=== PATIENT | male | born 1940 | race Caucasian/White ===

== ENCOUNTER 2025-01-15 11:41 | Inpatient (IN) | payer MEDICARE, SELFPAY ==
[2025-01-15] VITALS (14 sets, daily range): BP systolic 110–172; BP diastolic 55–85; PULSE 68–89; RESP 14–18; TEMP 36.4–37.2; O2SAT 94–100; BMI 23.9; BMI 23.2
--- NOTE | 2025-01-15 08:27 | PCM.PRE.AN2 ---
ASA Classification* ASA Classification ASA Classification: 2 Assessment & Plan Anesthesia* Anesthesia Assessment Anesthesia Assessment: Discussed sedation and/or anesthesia options, risks, benefits, and alternatives with patient/parents/legal guardian/POA. Questions invited. The patient/parents/legal guardian/POA seems to understand and agrees to proceed with anesthesia plan. Reviewed the physical assessment, medical history, allergy history and patient home medications list prior to surgery/procedure/anesthetic and documented any changes. Performed airway and anesthesia risk assessments. 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 When Was Last Pacemaker Check QUESTION #4 FULL TEXT: You/Your Family Experience fever (hyperthermia) with Anesthesia Last Oral Intake Last Oral intake: Last Oral Intake NPO since Meds taken in AM with sips of water? 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 Female No 01/13/25 10:52 HX of Motion Sickness No 01/13/25 10:52 HX of N/V After Surgery No 01/13/25 10:52 Non-Smoker Yes 01/13/25 10:52 Duration of Surgery greater No 01/13/25 10:52 than 60 minutes Number of Risk Factors 1 01/13/25 10:52 PONV Score Low Risk 01/13/25 10:52 Height & Weight Height & Weight: Anesthesia: Height & Weight Height 5 ft 7 in 12/05/24 14:52 Respiratory Assessment Respiratory Assessment - mine production engineer: Respiratory Tract Infection Hx - mine production engineer Hx Respiratory Tract Infection Yes: COLD 2 WEEKS AGO/ 01/13/25 10:52 RESOLVED STOP Sleep Apnea STOP Sleep Apnea - mine production engineer: STOP Sleep Apnea - mine production engineer Hx Hypertension Yes: CONTROLLED WITH MED 01/13/25 10:52 Hx Sleep Apnea No 01/13/25 10:52 CPAP BIPAP Do you snore loudly (louder No 01/13/25 10:52 than talking or can be heard Do you often feel tired/ Yes 01/13/25 10:52 fatigued/ sleepy during daytime? Has anyone observed you stop No 01/13/25 10:52 breathing during sleep? STOP Results Positive 01/13/25 10:52 QUESTION #5 FULL TEXT : Do you snore loudly (louder than talking or can be heard through closed doors)? 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 Specify any problems Hx of Preganancy in last 3 N/A 01/13/25 10:52 Months Nurse Filling Out Transfusion DSCHRIBER 01/13/25 10:52 & Questions: Date: 01/13/25 01/13/25 10:52 Time: 10:54 01/13/25 10:52 Patient unable to answer at this time (ie. confused, unrespo /Reproduction History /Reproductive History - mine production engineer: /Reproductive Hx- mine production engineer Hx Now No 01/13/25 10:52 Gestational Age (in weeks): EDC: Hx Hx Para Hx Section SAB No 01/13/25 10:52 PFSH Medical History Wears glasses Thyroid disease Diabetes Anemia Restless legs TIA (transient ischemic attack) Dietary restriction Non-smoker Shortness of breath on exertion History of pain when walking History of edema History of echocardiogram History of stress test Hypertension Diarrhea Home Medications ?Medication ?Instructions ?Recorded ?Last Taken ?Type aspirin 81 mg tablet,delayed 81 mg PO QDAY 12/05/24 01/11/25 History release (Adult Aspirin Regimen) levothyroxine 150 mcg tablet 150 mcg PO QDAY 12/05/24 Unknown History lisinopril 2.5 mg tablet 2.5 mg PO QHS 12/05/24 Unknown History metformin 500 mg tablet 500 mg PO BID 12/05/24 Unknown History Allergy/AdvReac Type Severity Reaction Status Date / Time Penicillins Allergy Severe Anaphylaxis Verified 01/13/25 10:49 Surgical History Hx of right cataract extraction Hx of left cataract extraction Hx of colonoscopy Hx of hemorrhoidectomy History of cochlear implant H/O thyroidectomy Hx of cholecystectomy Social History Smoking Status: Never smoker alcohol intake: never substance use type: does not use Review of Systems (Anesthesia) ROS Narrative System reviewed and no additional complaints, except as documented.
[2025-01-15 09:05] LABS: Hematocrit 20.9 % (40-54); POSITIVE COUNT YES
[2025-01-15 09:07] LABS: Hemoglobin 5.9 g/dL (13.0-16.5)
[2025-01-15] MEDS: Lactated Ringers 1,000 ML 15 ML IV (09:30)
--- NOTE | 2025-01-15 09:33 | H&P.OPEN ---
HPI - General General Date of Service: 01/15/25 HPI Narrative IQRA HWANG, is a 84 M who presents for EGD and colonoscopy due to anemia. Patient's hemoglobin checked this morning was 5.9. Plan for patient to get 2 units packed red blood cells and admitted after the scope by the hospitalist. Patient states she has had dark brown stool since office visit denies any black or red stools. Patient also denies any abdominal pain nausea or vomiting. Patient has had a good appetite but does feel very weak. Patient's last colonoscopy was probably about 15 years ago per patient. Office appointment 12/06/2024 HPI HPI: 84-year-old male presents due to anemia for EGD and colonoscopy. Patient's last hemoglobin was 7. Patient states he may have felt weak but that that was just due to his age and he also does work 3 to 4 days a week. Patient states he has had light brown stools denies any blood mostly been loose usually has some about every 2 to 3 days. Patient has been tolerating diet, admits to good appetite denies any nausea or vomiting. Patient is only on 81 mg of aspirin. Patient last colonoscopy was greater than 10 years ago. Patient denies any family history of colon cancer. [facility] Medical History Wears glasses Thyroid disease Diabetes Anemia Restless legs TIA (transient ischemic attack) Dietary restriction Non-smoker Shortness of breath on exertion History of pain when walking History of edema History of echocardiogram History of stress test Hypertension Diarrhea Home Medications ?Medication ?Instructions ?Recorded ?Last Taken ?Type aspirin 81 mg tablet,delayed 81 mg PO QDAY 12/05/24 01/11/25 History release (Adult Aspirin Regimen) levothyroxine 150 mcg tablet 150 mcg PO QDAY 12/05/24 01/14/25 History lisinopril 2.5 mg tablet 2.5 mg PO QHS 12/05/24 01/14/25 History metformin 500 mg tablet 500 mg PO BID 12/05/24 01/13/25 History Allergy/AdvReac Type Severity Reaction Status Date / Time Penicillins Allergy Severe Anaphylaxis Verified 01/15/25 09:04 Surgical History Hx of right cataract extraction Hx of left cataract extraction Hx of colonoscopy Hx of hemorrhoidectomy History of cochlear implant H/O thyroidectomy Hx of cholecystectomy Social History Smoking Status: Never smoker alcohol intake: never substance use type: does not use Past Medical/Surgical History Planned Operation Planned Operative Procedure(s): EGD/CSCOPE Previous Hospitalizations/Surgeries HX Hospitalizations: No Any Problems With Anesthesia: No You/Your Family Experience Fever (Hyperthermia) With Anes: No Cholinesterase deficiency: No Cardiovascular Hx Hypertension: Yes (CONTROLLED WITH MED) Respiratory Hx Sleep Apnea: No Hx Respiratory Tract Infection/Cold (presently): Yes (COLD 2 WEEKS AGO/RESOLVED) Do You Snore Loudly (louder than talking or can be heard): No Do You Often Feel Tired/ Fatigued/ Sleepy Dring Daytime?: Yes Has Anyone Observed You Stop Breathing During Sleep?: No Result (for STOP score): Positive Smoking Status: Never smoker Neurological Does patient have nerve stimulator: No Reproduction : No Miscellaneous Recent Exposure to Contagious Disease: No Allergies Penicillins Allergy (Severe, Verified 01/15/25 09:04) Anaphylaxis Discharge Is Pt Admitted From a Intermediate, or a Prison: No After D/C, Where Do you Plan to Go: Return Home Vital Signs Vital Signs Vital Signs: 01/15/25 09:05 01/15/25 09:05 Temperature 98.9 F Temperature Source Temporal Pulse Rate 89 Respiratory Rate 18 Respiratory Pattern Normal Blood Pressure 148/68 H Blood Pressure Mean 94 Blood Pressure Source Monitor Blood Pressure Position Semi-Fowlers Pulse Ox 95 Oxygen Delivery Method Room Air Weight Weight: 153 lb 0.013 oz Body Mass Index (BMI) 23.9 Physical Exam Const alert, oriented x3 and no apparent distress HEENT normocephalic and head/scalp atraumatic Resp normal respiratory effort Cardio regular rate GI soft to palpation and non-tender; Negative for non-distended Palpation: Negative for guarding Extremity no clubbing, cyanosis or edema Skin no rashes or lesions noted Neuro CN's II-XII intact bilaterally Psych mental status grossly normal Assessment & Plan Assessment/Plan (1) Anemia: PLAN: Plan Patient is also getting 2 units packed red blood cells and will plan to be admitted after the EGD and colonoscopy. Surgery Risks - Colonoscopy I discussed with the patient the risks of the procedure: Yes Risks Include but are not Limited To: Risks include but are not limited to: Bleeding, perforation requiring further surgery, inability to complete colonoscopy requiring barium enema.
--- NOTE | 2025-01-15 09:45 | EGD_PTH ---
PATIENT: IQRA HWANG LOC: MS3 U#:[id number] AGE/SX: 84/M [place] [facility] [place]: Dr. Krunal Lizarraga DO : 1940 BED: 1 DIS: 01/19/2025 SPEC #: [id number] RECD: 01/15/25 14:09 STATUS: SARIKA DE LEON #: [id number] SULLY: 01/15/25 09:[address]: Therese Huynh DEPT: SURGICAL PATHOLOGY RECD BY: Glenn Alatorre ENTERED: 01/15/25 14:09 SP TYPE: EGD BIOPSY BENNY DR: MD Dr. Krunal Cedeno DO Tissues: A - Gastric mucous membrane Procedures: Surgery Specimen Level IV HEADER OPERATION: Colonoscopy, EGD PRE-OP DIAGNOSIS: Anemia TISSUE SUBMITTED: A- Gastric body polyp biopsy MICROSCOPIC DIAGNOSIS A. Stomach, body, polyp, biopsy: * Fundic gland polyp. MICROSCOPIC DESCRIPTION Slides are reviewed. GROSS DESCRIPTION A. Received in formalin in a container labeled with the patient's name, date of , and gastric body polyp biopsy is a 0.3 x 0.3 x 0.3 cm fragment of lópez-pink mucosal tissue. Submitted in toto in A1. [facility] 01/17/2025 CPT:38981
[2025-01-15 10:55] LABS: Bedside Glucose 184 mg/dL (74-106)
--- NOTE | 2025-01-15 11:28 | OP.CCLET_ITS ---
01/15/2025 Lam Rajan [address] [place] [address] Re : Upper GI endoscopy procedure for Wisam Nunez Dear Dr. Rajan This procedure was performed on Wednesday, January 15, 2025. My impressions and recommendations are as follows: Impressions : - Z-line regular, 40 cm from the incisors. - Multiple gastric polyps. Biopsied. - Normal examined duodenum. - No gross lesions in the entire esophagus. Recommendations : - [Diet Recommendation] [Duration]. - Observe patient in hospital for observation. - Resume previous diet. - Continue present medications. - Await pathology results. My findings are described in the full procedure note, which is enclosed. If I can be of further assistance, please feel free to contact me at Doctor phone number(s): , Work: . Sincerely, MD Therese eBan MD 01/15/2025 11:28:23 AM This report has been signed electronically.
--- NOTE | 2025-01-15 11:28 | OP.EGD_ITS ---
Patient Name: Wisam Nunez Procedure Date: 01/15/2025 10:40 AM Date of : 1940 Age: 84 Procedure: Upper GI endoscopy Indications: Iron deficiency anemia Providers: Therese Huynh MD Medicines: Monitored Anesthesia Care Patient Profile: This is an 84 year old male. Complications: No immediate complications. Procedure: Pre-Anesthesia Assessment: - Prior to the procedure, a History and Physical was performed, and patient medications and allergies were reviewed. The patient's tolerance of previous anesthesia was also reviewed. The risks and benefits of the procedure and the sedation options and risks were discussed with the patient. All questions were answered, and informed consent was obtained. Prior Anticoagulants: The patient has taken no anticoagulant or antiplatelet agents except for aspirin. ASA Grade Assessment: Per anesthesia. After reviewing the risks and benefits, the patient was deemed in satisfactory condition to undergo the procedure. After obtaining informed consent, the endoscope was passed under direct vision. Throughout the procedure, the patient's blood pressure, pulse, and oxygen saturations were monitored continuously. The Endoscope was introduced through the mouth, and advanced to the second part of duodenum. The upper GI endoscopy was accomplished without difficulty. The patient tolerated the procedure well. Scope In: 10:52:41 AM Scope Out: 10:56:30 AM Total Procedure Duration Time 0 hours 3 minutes 49 seconds Findings: The Z-line was regular and was found 40 cm from the incisors. Multiple less than 5 mm semi-pedunculated polyps with no bleeding and no stigmata of recent bleeding were found in the gastric fundus. Biopsies were taken with a cold forceps for histology. The examined duodenum was normal. The cardia and gastric fundus were normal on retroflexion. No gross lesions were noted in the entire esophagus. Impression: - Z-line regular, 40 cm from the incisors. - Multiple gastric polyps. Biopsied. - Normal examined duodenum. - No gross lesions in the entire esophagus. Recommendation: - [Diet Recommendation] [Duration]. - Observe patient in hospital for observation. - Resume previous diet. - Continue present medications. - Await pathology results. Procedure Code(s): --- Professional --- 82525, Esophagogastroduodenoscopy, flexible, transoral; with biopsy, single or multiple Diagnosis Code(s): --- Professional --- K31.7, Polyp of stomach and duodenum D50.9, Iron deficiency anemia, unspecified CPT copyright 2021 [employer]. All rights reserved. The codes documented in this report are preliminary and upon post secondary professional review may be revised to meet current compliance requirements. MD Therese Bean MD 01/15/2025 11:28:23 AM This report has been signed electronically. Number of Addenda: 0 Note Initiated On: 01/15/2025 10:40 AM
--- NOTE | 2025-01-15 11:32 | OP.CCLET_ITS ---
01/15/2025 Lam Rajan [address] [place] [address] [place] [address] Re : Colonoscopy procedure for Wisam Nunez Dear Dr. Rajan This procedure was performed on Wednesday, January 15, 2025. My impressions and recommendations are as follows: Impressions : - Diverticulosis in the entire examined colon. - The entire examined colon is normal on direct and retroflexion views. - No specimens collected. Recommendations : - Admit the patient to [facility] for observation. - No repeat colonoscopy due to current age (66 years or older). - Continue present medications. My findings are described in the full procedure note, which is enclosed. If I can be of further assistance, please feel free to contact me at Doctor phone number(s): , Work: . Sincerely, MD Therese Bean MD 01/15/2025 11:31:46 AM This report has been signed electronically.
--- NOTE | 2025-01-15 11:32 | OP.COLON_ITS ---
Patient Name: Wisam Nunez Procedure Date: 01/15/2025 10:58 AM Date of : 1940 Age: 84 Procedure: Colonoscopy Indications: Iron deficiency anemia Providers: Therese Huynh MD Medicines: Monitored Anesthesia Care Patient Profile: This is an 84 year old male. Last Colonoscopy: more than 10 years ago. Complications: No immediate complications. Procedure: Pre-Anesthesia Assessment: - Prior to the procedure, a History and Physical was performed, and patient medications and allergies were reviewed. The patient's tolerance of previous anesthesia was also reviewed. The risks and benefits of the procedure and the sedation options and risks were discussed with the patient. All questions were answered, and informed consent was obtained. Prior Anticoagulants: The patient has taken no anticoagulant or antiplatelet agents except for aspirin. ASA Grade Assessment: Per anesthesia. After reviewing the risks and benefits, the patient was deemed in satisfactory condition to undergo the procedure. After I obtained informed consent, the scope was passed under direct vision. Throughout the procedure, the patient's blood pressure, pulse, and oxygen saturations were monitored continuously. The Colonoscope was introduced through the anus and advanced to the cecum, identified by the appendiceal orifice, ileocecal valve and palpation. The colonoscopy was performed without difficulty. The patient tolerated the procedure well. The quality of the bowel preparation was good. Scope In: 10:58:51 AM Scope Withdrawal Time 0 hours 15 minutes 7 seconds Scope Out: 11:23:13 AM Total Procedure Duration Time 0 hours 24 minutes 22 seconds Findings: The perianal and digital rectal examinations were normal. Multiple small-mouthed diverticula were found in the entire colon. The entire examined colon appeared normal on direct and retroflexion views. Impression: - Diverticulosis in the entire examined colon. - The entire examined colon is normal on direct and retroflexion views. - No specimens collected. Recommendation: - Admit the patient to [facility] for observation. - No repeat colonoscopy due to current age (66 years or older). - Continue present medications. Procedure Code(s): --- Professional --- 14970, Colonoscopy, flexible; diagnostic, including collection of specimen(s) by brushing or washing, when performed (separate procedure) Diagnosis Code(s): --- Professional --- D50.9, Iron deficiency anemia, unspecified K57.30, Diverticulosis of large intestine without perforation or abscess without bleeding CPT copyright 2021 [employer]. All rights reserved. The codes documented in this report are preliminary and upon quill reamer review may be revised to meet current compliance requirements. MD Therese Bean MD 01/15/2025 11:31:46 AM This report has been signed electronically. Number of Addenda: 0 Note Initiated On: 01/15/2025 10:58 AM
--- NOTE | 2025-01-15 11:35 | PCM.POST.ANE ---
Anesthesia: Postop Eval I Current Vital Signs Temperature: 97.8 F Pulse Rate: 74 Blood Pressure: 110/55 Respiratory Rate: 16 Pulse Ox: 96 Oxygen Delivery Method: Room Air Assessment Airway patent: Yes Spontaneous unlabored respirations: Yes Mental status: Awake and Calm nausea: No Vomiting: No Anesthesia Complication: No Fluid Hydration Crystalloid volume administer (ml): 100 Blood Product volume administered (ml): 200 Total IV fluid infused: 300 Progress Note Anesthesia document: Postop Eval 1 completed: Yes
--- NOTE | 2025-01-15 12:07 | PCM.POSTANE2 ---
Anesthesia Postop Eval I Sum Postop Eval Completion status Anesthesia document: Postop Eval 1 completed: Yes Anesthesia Postop Eval I Summary Anesthesia Postop Eval I Summary: Anesthesia Postop Eval I: Assessment Summary Airway patent Yes 01/15/25 11:36 [email or web address] Spontaneous unlabored Yes 01/15/25 11:36 [email or web address] respirations Mental status Awake,Calm 01/15/25 11:36 [email or web address] nausea No 01/15/25 11:36 [email or web address] Vomiting No 01/15/25 11:36 [email or web address] Anesthesia Postop Eval I: Fluid Summary Crystalloid volume administer 100 01/15/25 11:36 [email or web address] (ml) Colloids volume administered ( ml) Blood Product volume 200 01/15/25 11:36 [email or web address] administered (ml) Total IV fluid infused 300 01/15/25 11:36 [email or web address] Anesthesia Postop Eval I: Summary Notes Anesthesia Complication No 01/15/25 11:36 [email or web address] Anesthesia Complication Comment: Post-operative progress note Anesthesia: Postop Eval II Evaluation Mental status: Awake Pain Level: 0 nausea: No Vomiting: No
[2025-01-15 15:36] LABS: Anion Gap 15 (5-15); BUN 17 mg/dL (4-19); BUN/Creat Ratio 12.5 RATIO (10-20); Calcium,Total 6.7 mg/dL (7.6-11.0); Carbon Dioxide 20.8 mmol/L (21.0-32.0); Chloride 102 mmol/L (98-108); Creatinine, Serum 1.32 mg/dL (0.70-1.20); EST Glomerular Filtration Rate 53 (>60); Estimated Creatinine Clearance 38.25 ml/min (50-250); Ferritin 10 ng/mL (37-417); Glucose 187 mg/dL (70-99); Iron 10 ug/dL (65-175); Iron Binding Capacity,Total 417 ug/dL (250-450); Iron Binding Capacity,Unsat 407 ug/dL (228-428); Potassium 3.7 mmol/L (3.3-5.1); Sodium Level 138 mmol/L (133-145)
--- NOTE | 2025-01-15 15:45 | SUR.PHASEII ---
H&H DRAWN AND SENT TO THE LAB.
[2025-01-15 16:04] LABS: Hematocrit 25.1 % (40-54); Hemoglobin 7.7 g/dL (13.0-16.5)
--- NOTE | 2025-01-15 16:30 | SUR.PHASEII ---
PATIENT CURRENTLY EATING HIS MEAL AND ENJOYING IT . NO COMPLAINTS CURRENTLY.
--- NOTE | 2025-01-15 19:00 | PCM.HP.STD ---
HPI - General General Date of Admission: 01/15/25 Date of Service: 01/15/25 Chief Complaint: Anemia HPI Narrative IQRA HWANG, is a 84 M who presents to [facility] for endoscopy by general surgery due to outpatient labs which showed an anemia. He was seen as an outpatient at Dr. Huynh's office on 12/06/2024, labs from 11/08/2024 showed the patient's hemoglobin to be 7.1, MCV was normal, platelet count was normal and white count was normal. Patient denied any blood in the stool or any black stools. Patient was set up for an EGD and a colonoscopy today, his hemoglobin this morning was 5.9 and the hospitalist service was called to admit the patient after the procedure was completed and the patient would need to be transfused. Patient received 2 units of packed red blood cells in recovery and due to a lack of beds on the third floor, he did not arrive on MedSurg 3 till late in the afternoon by that time his hemoglobin had been repeated and was 7.7. Colonoscopy today showed diverticulosis in the entire examined colon, EGD showed multiple gastric polyps which were biopsied but there were no gross lesions in the esophagus or duodenum. Patient was placed in observation status on MedSurg 3, I will obtain serum iron levels, TIBC, and ferritin. CBC will be rechecked tomorrow, urinalysis will be obtained tomorrow. [facility] Medical History Wears glasses Thyroid disease Diabetes Anemia Restless legs TIA (transient ischemic attack) Dietary restriction Non-smoker Shortness of breath on exertion History of pain when walking History of edema History of echocardiogram History of stress test Hypertension Diarrhea Home Medications ?Medication ?Instructions ?Recorded ?Last Taken ?Type aspirin 81 mg tablet,delayed 81 mg PO QDAY 12/05/24 01/11/25 History release (Adult Aspirin Regimen) levothyroxine 150 mcg tablet 150 mcg PO QDAY 12/05/24 01/14/25 History lisinopril 2.5 mg tablet 2.5 mg PO QHS 12/05/24 01/14/25 History metformin 500 mg tablet 500 mg PO BID 12/05/24 01/13/25 History Allergy/AdvReac Type Severity Reaction Status Date / Time Penicillins Allergy Severe Anaphylaxis Verified 01/15/25 09:04 Surgical History Hx of right cataract extraction Hx of left cataract extraction Hx of colonoscopy Hx of hemorrhoidectomy History of cochlear implant H/O thyroidectomy Hx of cholecystectomy Social History Smoking Status: Never smoker alcohol intake: never substance use type: does not use ROS Constitutional Constitutional: Reports chills; Denies anorexia, change in weight, fatigue, fever(s), night sweats or weakness Eyes Eyes: Denies blurry vision, change in vision, discharge from eye(s) or eye pain Cardiovascular Cardiovascular: Denies chest pain, claudication, edema or palpitations Respiratory/Chest Respiratory/Chest: Denies cough, hemoptysis, shortness of breath at rest or shortness of breath with exertion Gastrointestinal Gastrointestinal: Denies abdominal pain, coffee ground emesis, constipation, diarrhea, hematemesis, hematochezia, loose stools, melena, nausea or vomiting Genitourinary Genitourinary: Denies dysuria, hematuria, urinary frequency, urinary hesitancy, urinary incontinence or urinary urgency Musculoskeletal Musculoskeletal: Denies back pain, joint pain, joint stiffness, joint swelling, myalgias or neck pain Neurologic Neurologic: Denies abnormal gait, abnormal speech, dizziness, focal weakness, headache(s), loss of vision, numbness, other visual disturbances, paresthesias, syncope or tingling Psychiatric Psychiatric: Denies anxiety, cognitive impairment, depression, irritability, mood swings or suicidal ideation Endocrine Endocrinology: Denies change in body appearance, cold intolerance, excessive sweating, heat intolerance, polydipsia or polyuria Hematologic/Lymphatic Hematologic/Lymphatic: Denies none, anemia, easy bleeding, easy bruising or lymphadenopathy Allergic/Immunologic Allergic/Immunologic: Denies rhinitis, urticaria, eczemia or asthma Vital Signs Vital Signs Vital Signs: 01/15/25 09:05 01/15/25 09:05 01/15/25 10:28 Temperature 98.9 F 99.0 F Temperature Source Temporal Temporal Pulse Rate 89 87 Respiratory Rate 18 16 Respiratory Effort Respiratory Depth Respiratory Pattern Normal Blood Pressure 148/68 H 158/72 H Blood Pressure Mean 94 100 Blood Pressure Source Monitor Monitor Blood Pressure Position Semi-Fowlers Semi-Fowlers Blood Pressure Location Right Arm Baseline BP Pulse Ox 95 99 Oxygen Delivery Method Room Air Room Air 01/15/25 11:30 01/15/25 11:35 01/15/25 11:36 Temperature 98.2 F 97.8 F Temperature Source Temporal Pulse Rate 80 78 74 Respiratory Rate 16 16 16 Respiratory Effort Respiratory Depth Respiratory Pattern Normal Blood Pressure 110/55 L 125/61 H 110/55 L Blood Pressure Mean 73 82 Blood Pressure Source Monitor Monitor Blood Pressure Position Left Lateral Left Lateral Blood Pressure Location Right Arm Right Arm Baseline BP 158/72 158/72 Pulse Ox 96 96 96 Oxygen Delivery Method Room Air Room Air Room Air 01/15/25 11:40 01/15/25 12:00 01/15/25 12:00 Temperature 97.5 F L 98.8 F Temperature Source Temporal Temporal Pulse Rate 79 68 Respiratory Rate 16 16 Respiratory Effort Respiratory Depth Respiratory Pattern Normal Blood Pressure 129/84 H 158/82 H Blood Pressure Mean 99 107 Blood Pressure Source Monitor Monitor Blood Pressure Position Semi-Fowlers Semi-Fowlers Blood Pressure Location Right Arm Right Arm Baseline BP 158/72 Pulse Ox 98 100 Oxygen Delivery Method Room Air Room Air 01/15/25 12:39 01/15/25 12:54 01/15/25 13:54 Temperature 98.8 F 98.3 F 98.9 F Temperature Source Temporal Temporal Temporal Pulse Rate 68 78 75 Respiratory Rate 16 16 16 Respiratory Effort Respiratory Depth Respiratory Pattern Blood Pressure 158/82 H 153/85 H 169/83 H Blood Pressure Mean 107 107 111 Blood Pressure Source Monitor Monitor Monitor Blood Pressure Position Semi-Fowlers Semi-Fowlers Semi-Fowlers Blood Pressure Location Right Arm Right Arm Right Arm Baseline BP Pulse Ox 100 99 98 Oxygen Delivery Method Room Air Room Air Room Air 01/15/25 14:54 01/15/25 16:31 01/15/25 17:06 Temperature 97.8 F 97.8 F Temperature Source Temporal Oral Pulse Rate 75 75 Respiratory Rate 18 16 Respiratory Effort Respiratory Depth Respiratory Pattern Blood Pressure 172/83 H 160/79 H Blood Pressure Mean 112 106 Blood Pressure Source Monitor Monitor Blood Pressure Position Semi-Fowlers Sitting Blood Pressure Location Right Arm Right Arm Baseline BP 158/72 Pulse Ox 94 100 Oxygen Delivery Method Room Air Room Air 01/15/25 17:08 Temperature Temperature Source Pulse Rate Respiratory Rate Respiratory Effort Normal Non-Labored Respiratory Depth Normal Respiratory Pattern Normal Blood Pressure Blood Pressure Mean Blood Pressure Source Blood Pressure Position Blood Pressure Location Baseline BP Pulse Ox Oxygen Delivery Method Room Air Weight Weight: 69.4 kg Body Mass Index (BMI) 23.2 Physical Exam Const alert, oriented x3, no apparent distress and healthy appearing Constitutional Narrative: Patient appears her stated age General Appearance: cooperative, well kempt and well developed Orientation / Consciousness: awake, oriented to person, oriented to place and oriented to time HEENT normocephalic, head/scalp atraumatic and moist oral mucous membranes HEENT Narrative: Patient is hard of hearing Eyes PERRL, EOMs intact bilaterally and conjunctivae normal Neck supple, no JVD, thyroid normal and no carotid bruits General: trachea midline Resp normal respiratory effort, no retractions, no use of accessory muscles and clear to auscultation bilaterally Auscultation: Negative for rales, rhonchi or wheezes Cardio regular rate, regular rhythm, S1 normal heart sound, S2 normal heart sound, no murmurs, no rub and no gallops GI normal to inspection, nondistended, normoactive bowel sounds, soft to palpation, non-tender and non-distended Extremity no clubbing, cyanosis or edema Skin no rashes or lesions noted General Skin Exam: no breakdown Neuro oriented x3, CN's II-XII intact bilaterally, moves all extremities, no focal motor deficits and no sensory deficits noted Sensorium / Orientation: awake, alert, oriented to person, oriented to place and oriented to time Speech: speech normal Psych affect normal Results Lab / Micro Data 01/15/25 15:38 01/15/25 09:25 Labs: Laboratory Results - last 24 hr 01/15/25 08:54: Hgb 5.9 L*, Hct 20.9 L 01/15/25 09:18: Blood Type O NEGATIVE, Antibody Screen NEGATIVE, Crossmatch See Detail 01/15/25 09:25: Sodium 138, Potassium 3.7, Chloride 102, Carbon Dioxide 20.8 L, Anion Gap 15, BUN 17, Creatinine 1.32 H, Estim Creat Clear Calc 38.25 L, Est GFR (MDRD) Non-Af 53 L, BUN/Creatinine Ratio 12.5, Glucose 187 H, Calcium 6.7 L, Iron 10 L, TIBC 417, Iron Saturation 2.0 L, Unsaturated IBC 407, Ferritin 10 L 01/15/25 09:28: POC Glucose 184 H 01/15/25 15:38: Hgb 7.7 L, Hct 25.1 L Assessment & Plan Assessment/Plan (1) Anemia: PLAN: Plan 1. Anemia-probably chronic in nature requiring blood transfusion, patient was placed in observation status on MedSurg 3, CBC will be repeated tomorrow, iron studies will be obtained as well as ferritin. UA will be obtained #2 hypothyroidism-patient is on Synthroid #3 type 2 diabetes-patient's hemoglobin A1c on 11/08/2024 was 11.3 Total clinical time spent by myself addressing the patient's medical issues, reviewing all of his data, and collaborating with patient's care team: 55 minutes Charges/Coding Visit Charges Inpatient E&M: 83702 Init Hosp L2
[2025-01-15 20:18] LABS: Hemoglobin A1c 10.9 % (<=5.6)
[2025-01-15] MEDS: Sodium Ferric Gluconat/Sucrose 250 MG in 0.9% Normal Saline (250mL Bag) 250 ML 135 MG IV (20:40)
[2025-01-15] MEDS: Lisinopril 2.5 MG Tablet PO (20:46)
[2025-01-15] MEDS: Heparin Injection (Vial) 5,000 UNIT/ML VIAL 5000 UNIT SC (20:46)
[2025-01-16 02:24] VITALS: BP 132/62; PULSE 66; RESP 18; TEMP 36.9; O2SAT 96
[2025-01-16] MEDS: Levothyroxine 150 MCG Tablet PO (04:33)
[2025-01-16 07:01] LABS: Absolute Lymphocyte Count 0.98 X10^3/uL (0.83-4.51); Absolute Neutrophil Count 2.9 X10^3/uL (2.0-7.7); Basophil# 0.02 X10^3/uL; Basophil% 0.4 % (0-1); Eosinophils% 8.6 % (0-5); Hematocrit 25.5 % (40-54); Hemoglobin 7.8 g/dL (13.0-16.5); Lymphocyte # 0.98 X10^3/ul (0.83-4.51); Mean Corp Hgb Conc 30.6 g/dL (32-36); Mean Corpuscular Hgb 23.4 pg (27.0-32.0); Mean Corpuscular Volume 76.3 fL (80-94); Mean Platelet Vol. 9.5 fl (6.2-12.0); Monocyte# 0.37 X10^3/uL; Monocyte% 7.9 % (0-10); NRBC Flagged by Analyzer 0 % (0-5); Neutrophil # 2.87 X10^3/uL (2.7-7.7); Neutrophil % 61.5 % (47-70); Platelet Count 290 K/mm3 (150-450); RET-HE 20.7 pg (30-35); Red Blood Count 3.34 M/mm3 (4.6-6.2); Reticulocyte Count 1.68 % (0.5-1.5); White Blood Count 4.7 K/mm3 (4.4-11.0)
[2025-01-16 08:20] VITALS: BP 158/88; PULSE 72; RESP 18; TEMP 36.6; O2SAT 97
[2025-01-16] MEDS: Sodium Ferric Gluconat/Sucrose 250 MG in 0.9% Normal Saline (250mL Bag) 250 ML 135 MG IV (08:25)
[2025-01-16] MEDS: Heparin Injection (Vial) 5,000 UNIT/ML VIAL 5000 UNIT SC ×2 (10:40→20:32)
[2025-01-16 10:56] LABS: Bacteria 0 SEEN /hpf (None Seen); Mucous, Urine 0 SEEN /hpf (<or=2+); White Blood Cells 0 SEEN /hpf (0-5)
[2025-01-16 10:58] LABS: Color, Urine Yellow (Yellow); Glucose, Dipstick 100 mg/dl (Normal); Ketone-Dipstick Negative (Negative); Leukocyte Esterase-Dipstick Negative /ul (Negative); Nitrite-Dipstick Negative (Negative); Occult Blood-Urine 250 /ul (Negative); Protein-Dipstick 500 mg/dl (Negative); Specific Gravity, Urine 1.015 (1.002-1.030); Urine Bilirubin Dipstick Negative (Negative); Urine Clarity Sl. Cloudy (Clear); Urine Urobilinogen Normal (Normal)
[2025-01-16 11:05] LABS: Red Blood Cells-Urine > 100 SEEN /hpf (0-5); Squamous Epithelial Cells - UA 0-5 SEEN /hpf (0-5)
--- NOTE | 2025-01-16 11:57 | CASEMGMT ---
Discharge Planning Per pts , Julieta, pt has both a HC POA and LW. She has them laid out to bring in today. Julieta confirmed that she and pt share a cell phone and he has it with him. SW updated. Merissa Garcia DC Planning Asst.
[2025-01-16] MEDS: Acetaminophen 325 MG Tablet 650 MG PO ×2 (12:23→20:33)
[2025-01-16 14:30] VITALS: BP 144/86; PULSE 76; RESP 16; TEMP 37; O2SAT 97
--- NOTE | 2025-01-16 14:32 | NURSING ---
Around 1145 on 01/16, pt was complaining of lower abdominal pain and was frequently using the restroom. This RN bladder scanned pt and found 1100cc of urine on scan. Dr Lizarraga notified and ordered a arnold catheter to be placed. This RN inserted arnold catheter and at 1200 the urine was cloudy yellow. This RN went back into room at 1400 and urine was dark red with clots. Dr Lizarraga notified and is aware. Pt has had 2100cc of urine out of catheter since insertion at 1215.
--- NOTE | 2025-01-16 15:22 | CASEMGMT ---
Met with patient to complete MIRAMONTES form. MIRAMONTES form explained to patient who voiced understanding and signed form. Original form placed in pt?s chart and copy provided to patient. Merissa Garcia, Discharge Planning Asst
--- NOTE | 2025-01-16 15:47 | PN.HOSP_ITS ---
Reason for Visit Reason for Visit: Diagnoses Anemia, unspecified (01/15/25) Subjective Subjective Patient was seen and examined today, his hemoglobin appears to be stable, this afternoon, patient complained of frequent urination and abdominal pain, he was bladder scanned and there was 1100 cc of urine in the bladder. I made the decision to put a Hernández in, the Hernández drained out 2100 cc of urine in 2 hours, the urine was yellow when the Hernández was inserted but it changed to dark red with clots, presently the drainage is light red. Objective Data Objective Data Vital Signs: Vital Signs Temp Pulse Resp BP Pulse Ox O2 Del Method 98.6 F 76 16 144/86 H 97 Room Air 01/16/25 14:30 01/16/25 14:30 01/16/25 14:30 01/16/25 14:30 01/16/25 14:30 01/16/25 14:30 Oxygen Delivery Method Room Air Weight: 69.4 kg Body Mass Index (BMI) 23.2 Intake & Output: Intake and Output for Last 24 Hours 01/14/25 01/15/25 01/16/25 23:59 23:59 23:59 Intake Total 969.5 / 1169.5 840 / 840 Output Total 185 / 185 Balance 784.5 / 984.5 840 / 840 Medical Nutrition Assessment Dietitian: Malnutrition Criteria Met Start: 01/16/25 13:49 Freq: Status: Active Protocol: Document 01/16/25 13:50 RMA (Rec: 01/16/25 13:50 RMA [id number]) Nutrition Malnutrition Evidence of Yes Malnutrition Exists Malnutrition ( Chronic moderate): Evidenced By Suboptimal Energy Intake (Moderate),Weight Loss ( Moderate) Clinical Problem Chronic Disease or Condition Related Malnutrition Etiology moderate protein-calorie malnutrition in the context of chronic disease and debility related to inadequate oral intake and hyperglycemia Signs/Symptoms as evidenced by ~5% unintentional weight loss x 5-6 weeks, PO meeting less than 75% estimated nutrition needs x 1 month and BMI 23.3 Status Active Problem Recommendation Dietitian Will change diet to 2000 calorie, consistent Recommendations/ carbohydrate. Changes Will add 120mL glucerna shake with all meal trays. Will add extra 1-2 oz protein Q meal tray. Lab / Micro Data 01/16/25 05:49 01/15/25 09:25 Labs: Laboratory Results - last 24 hr 01/15/25 08:54: Hemoglobin A1c 10.9 H 01/15/25 15:38: Hgb 7.7 L, Hct 25.1 L 01/16/25 05:49: WBC 4.7, RBC 3.34 L, Hgb 7.8 L, Hct 25.5 L, MCV 76.3 L, MCH 23.4 L, MCHC 30.6 L, RDW Std Deviation 44.0 H, RDW Coeff of Tahir 16.0 H, Plt Count 290, MPV 9.5, Immature Gran % (Auto) 0.600, Neut % (Auto) 61.5, Lymph % (Auto) 21.0, [place] % (Auto) 7.9, Eos % (Auto) 8.6 H, Baso % (Auto) 0.4, Absolute Neuts (auto) 2.9, Absolute Lymphs (auto) 0.98, Nucleated RBC % 0, Retic Count 1.68 H, Immature Retic Fraction 27.90 H, Retic Hgb Equivalent 20.7 L 01/16/25 10:50: Urine Color Yellow, Urine Clarity Sl. Cloudy, Urine pH 6.0, Ur Specific Standard 1.015, Urine Protein 500 H, Urine Glucose (UA) 100 H, Urine Ketones Negative, Urine Occult Blood 250 H, Urine Nitrite Negative, Urine Bilirubin Negative, Urine Urobilinogen Normal, Ur Leukocyte Esterase Negative, Urine RBC > 100 SEEN, Urine WBC 0 SEEN, Ur Squamous Epith Cells 0-5 SEEN, Urine Bacteria 0 SEEN, Urine Mucus 0 SEEN Physical Exam Narrative alert, oriented x3, no apparent distress and healthy appearing Constitutional Narrative: Patient appears her stated age General Appearance: cooperative, well kempt and well developed Orientation / Consciousness: awake, oriented to person, oriented to place and oriented to time HEENT normocephalic, head/scalp atraumatic and moist oral mucous membranes HEENT Narrative: Patient is hard of hearing Eyes PERRL, EOMs intact bilaterally and conjunctivae normal Neck supple, no JVD, thyroid normal and no carotid bruits General: trachea midline Resp normal respiratory effort, no retractions, no use of accessory muscles and clear to auscultation bilaterally Auscultation: Negative for rales, rhonchi or wheezes Cardio regular rate, regular rhythm, S1 normal heart sound, S2 normal heart sound, no murmurs, no rub and no gallops GI normal to inspection, nondistended, normoactive bowel sounds, soft to palpation, non-tender and non-distended Extremity no clubbing, cyanosis or edema Skin no rashes or lesions noted General Skin Exam: no breakdown Neuro oriented x3, CN's II-XII intact bilaterally, moves all extremities, no focal motor deficits and no sensory deficits noted Sensorium / Orientation: awake, alert, oriented to person, oriented to place and oriented to time Speech: speech normal Psych affect normal Assessment & Plan Assessment/Plan (1) Anemia: PLAN: Plan 1. Chronic anemia-appears to be iron deficiency-etiology unclear, patient CBC will be rechecked tomorrow #2 acute urinary retention-patient admits to having difficulty urinating at times over the past few months, urine now has blood in it, I have elected to keep the patient in the hospital and observe, patient was placed on Flomax #3 type 2 diabetes-patient's hemoglobin A1c was 10.9, continue fingerstick blood sugars with sliding scale insulin coverage #4 hypothyroidism-patient is on Synthroid #5 chronic moderate protein and caloric malnutrition related to inadequate oral intake and hyperglycemia, as evidenced by a 5% unintentional weight loss x 5 to 6 weeks, p.o. meeting less than 75% of estimated nutritional needs x 1 month and BMI of 23.3. Patient's diet was changed to 2000-calorie consistent carbohydrate, he will have 120 mL Glucerna shake with all meal trays, and extra 1 to 2 ounces of protein was ordered with each meal tray Total clinical time spent by myself addressing the patient's medical issues, reviewing all of his data, and collaborating the patient's care team: 50 minutes Charges/Coding Visit Charges Inpatient E&M: 94514 Subs Hosp L3
--- NOTE | 2025-01-16 16:40 | CT_ITS ---
PROCEDURE: ABDOMEN/PELVIS WITHOUT CONT 01/16/2025 REASON FOR EXAM: HEMATURIA TECHNIQUE: Abdomen and pelvis CT without intravenous contrast. Noncontrast technique limits evaluation of the abdominal and pelvic viscera. Coronal and Sagittal reconstruction series were provided. One or more dose reduction techniques were used (e.g., Automated exposure control, adjustment of the mA and/or kV according to patient size, use of iterative reconstruction technique). COMPARISON: None FINDINGS: No acute findings in the lung bases. Mild bibasilar scarring/atelectasis. Mild/moderate cardiomegaly. Unenhanced liver, spleen, pancreas and adrenal glands are within normal limits. Gallbladder is not visualized. No significant biliary ductal dilation. Moderate/severe bilateral hydroureteronephrosis without definite obstructing calculi. Underdistended bladder with marked diffuse bladder wall thickening with perivesicular fat stranding. Small amount of right pre vesicular fluid is also present. Hernández catheter in place. Marked enlargement of the prostate impressing on the bladder base which measures at least 6.6 cm in transverse dimension. Stool ball in the rectum. Fecal retention. Scattered colonic diverticula. No bowel obstruction, focal bowel wall thickening or significant perienteric inflammation. No pelvic free fluid. No free air. Calcified nonaneurysmal abdominal aorta. No bulky adenopathy. Mild anasarca. No acute osseous abnormality. Degenerative changes of the lower lumbar spine. CT/Abdomen/Pelvis without Cont IMPRESSION: 1. Underdistended bladder containing a Hernández catheter which limits its assessme nt. Severe diffuse bladder wall thickening and perivesicular fat stranding as well as a small amount of right pre vesicular fl uid. Findings could relate to acute cystitis and/or chronic outlet obstruction. Underlying malignancy not excluded. Consid er further assessment with direct visualization and/or CT urogram. 2. Moderate/severe bilateral hydroureteronephrosis likely related to #1. 3. Marked prostatomegaly. 4. Fecal retention. Reading Location: [facility]
[2025-01-16] MEDS: Ciprofloxacin 500 MG Tablet PO (16:55)
[2025-01-16] MEDS: Tamsulosin HCl 0.4 MG Capsule 0.8 MG PO (16:55)
[2025-01-16 20:24] VITALS: BP 143/77; PULSE 77; RESP 18; TEMP 36.7; O2SAT 96
[2025-01-16] MEDS: Insulin Lispro 100 UNIT/ML INSULN.PEN SC (20:32)
[2025-01-16] MEDS: Lisinopril 2.5 MG Tablet PO (20:33)
[2025-01-16 21:23] LABS: Bedside Glucose 322 mg/dL (74-106)
[2025-01-17 03:11] VITALS: BP 139/81; PULSE 87; RESP 14; TEMP 36.6; O2SAT 96
[2025-01-17] MEDS: Levothyroxine 150 MCG Tablet PO (06:35)
[2025-01-17] MEDS: Insulin Lispro 100 UNIT/ML INSULN.PEN SC ×4 (06:35→21:07)
[2025-01-17 06:56] LABS: Bedside Glucose 200 mg/dL (74-106)
[2025-01-17 07:31] LABS: Absolute Lymphocyte Count 1.02 X10^3/uL (0.83-4.51); Basophil# 0.01 X10^3/uL; Basophil% 0.2 % (0-1); Eosinophil# 0.35 X10^3/uL; Eosinophils% 7.2 % (0-5); Hematocrit 26.9 % (40-54); Hemoglobin 8.2 g/dL (13.0-16.5); Lymphocyte # 1.02 X10^3/ul (0.83-4.51); Lymphocyte % 21.1 % (19-41); Mean Corp Hgb Conc 30.5 g/dL (32-36); Mean Corpuscular Volume 75.6 fL (80-94); Mean Platelet Vol. 9.4 fl (6.2-12.0); Monocyte# 0.37 X10^3/uL; Monocyte% 7.6 % (0-10); NRBC Flagged by Analyzer 0 % (0-5); Neutrophil # 3.04 X10^3/uL (2.7-7.7); Neutrophil % 62.9 % (47-70); Platelet Count 267 K/mm3 (150-450); RBC Distribution Width CV 16.5 % (11.6-14.6); Red Blood Count 3.56 M/mm3 (4.6-6.2); White Blood Count 4.8 K/mm3 (4.4-11.0)
[2025-01-17 08:16] LABS: ALB/GLOB Ratio 1.3 RATIO (0.9-2.4); AST(SGOT) 15 U/L (<=37); Alanine Aminotransfer ALT/SGPT 7 U/L (<=46); Albumin, Serum 2.7 g/dL (3.4-4.8); Alkaline Phosphatase 80 U/L (40-129); Anion Gap 11 (5-15); BUN 13 mg/dL (4-19); BUN/Creat Ratio 10.5 RATIO (10-20); Carbon Dioxide 21.9 mmol/L (21.0-32.0); Chloride 104 mmol/L (98-108); Creatinine, Serum 1.28 mg/dL (0.70-1.20); EST Glomerular Filtration Rate 55 (>60); Estimated Creatinine Clearance 40.82 ml/min (50-250); Globulin 2.1 g/dL (2.2-4.2); Glucose 197 mg/dL (70-99); Potassium 3.4 mmol/L (3.3-5.1); Protein, Total 4.8 g/dL (5.9-8.4); Sodium Level 137 mmol/L (133-145)
[2025-01-17 08:50] VITALS: PULSE 92
[2025-01-17] MEDS: 0.9% Saline Lock 10 ML Syringe IV ×6 (09:08→21:50)
[2025-01-17] MEDS: Lactulose 20 GM/30 ML UDC PO (09:09)
[2025-01-17 09:19] VITALS: BP 111/51; PULSE 89; RESP 16; TEMP 36.5; O2SAT 97
[2025-01-17] MEDS: CALCIUM CHLORIDE IV (09:30)
[2025-01-17] MEDS: NORMAL SALINE 0.9% IV (09:30)
[2025-01-17] MEDS: Heparin Injection (Vial) 5,000 UNIT/ML VIAL 5000 UNIT SC ×2 (09:39→21:03)
[2025-01-17] MEDS: Ciprofloxacin 500 MG Tablet PO ×2 (09:39→21:03)
[2025-01-17] MEDS: Sodium Ferric Gluconat/Sucrose 250 MG in 0.9% Normal Saline (250mL Bag) 250 ML 135 MG IV (11:41)
[2025-01-17 12:19] LABS: Bedside Glucose 233 mg/dL (74-106)
[2025-01-17 14:07] VITALS: BP 134/64; PULSE 94; RESP 18; TEMP 36.9; O2SAT 95
[2025-01-17] MEDS: Acetaminophen 325 MG Tablet 650 MG PO (14:09)
[2025-01-17] MEDS: TRANEXAMIC ACID 1,000 MG in 0.9% Normal Saline (100mL Bag) 100 ML 440 MG IV ×2 (16:17→21:40)
[2025-01-17] MEDS: 0.9% Normal Saline (100mL Bag) 100 ML 15 ML IV (16:17)
[2025-01-17 16:49] LABS: Bedside Glucose 325 mg/dL (74-106)
[2025-01-17] MEDS: Glucerna Shake 120 ML LIQUID PO ×2 (17:47→21:06)
[2025-01-17] MEDS: Tamsulosin HCl 0.4 MG Capsule 0.8 MG PO (17:48)
--- NOTE | 2025-01-17 17:52 | PN.HOSP_ITS ---
Reason for Visit Reason for Visit: Diagnoses Anemia, unspecified (01/17/25) Subjective Subjective Patient was seen and examined today, he still having blood-tinged urine. Patient's creatinine appears stable at this time. Patient's hemoglobin also appears stable. Decided to give the patient tranexamic acid to see if this will stop his bleeding. Urology is not available for consultation at this time and I prefer not to give the patient bladder irrigation. Objective Data Objective Data Vital Signs: Vital Signs Temp Pulse Resp BP Pulse Ox O2 Del Method 98.4 F 94 18 134/64 H 95 Room Air 01/17/25 14:07 01/17/25 14:07 01/17/25 14:07 01/17/25 14:07 01/17/25 14:07 01/17/25 15:27 Oxygen Delivery Method Room Air Weight: 69.4 kg Body Mass Index (BMI) 23.2 Intake & Output: Intake and Output for Last 24 Hours 01/15/25 01/16/25 01/17/25 23:59 23:59 23:59 Intake Total 969.5 / 1169.5 840 / 1540 2135 / 2135 Output Total 185 / 185 2900 / 3950 2950 / 2950 Balance 784.5 / 984.5 -2060 / -2410 -815 / -815 Medical Nutrition Assessment Dietitian: Malnutrition Criteria Met Start: 01/16/25 13:49 Freq: Status: Active Protocol: Document 01/16/25 13:50 RMA (Rec: 01/16/25 13:50 RMA [id number]) Nutrition Malnutrition Evidence of Yes Malnutrition Exists Malnutrition ( Chronic moderate): Evidenced By Suboptimal Energy Intake (Moderate),Weight Loss ( Moderate) Clinical Problem Chronic Disease or Condition Related Malnutrition Etiology moderate protein-calorie malnutrition in the context of chronic disease and debility related to inadequate oral intake and hyperglycemia Signs/Symptoms as evidenced by ~5% unintentional weight loss x 5-6 weeks, PO meeting less than 75% estimated nutrition needs x 1 month and BMI 23.3 Status Active Problem Recommendation Dietitian Will change diet to 2000 calorie, consistent Recommendations/ carbohydrate. Changes Will add 120mL glucerna shake with all meal trays. Will add extra 1-2 oz protein Q meal tray. Lab / Micro Data 01/17/25 06:49 01/17/25 06:49 Labs: Laboratory Results - last 24 hr 01/16/25 20:27: POC Glucose 322 H 01/17/25 06:34: POC Glucose 200 H 01/17/25 06:49: WBC 4.8, RBC 3.56 L, Hgb 8.2 L, Hct 26.9 L, MCV 75.6 L, MCH 23.0 L, MCHC 30.5 L, RDW Std Deviation 45.0 H, RDW Coeff of Tahir 16.5 H, Plt Count 267, MPV 9.4, Immature Gran % (Auto) 1.000 H, Neut % (Auto) 62.9, Lymph % (Auto) 21.1, [place] % (Auto) 7.6, Eos % (Auto) 7.2 H, Baso % (Auto) 0.2, Absolute Neuts (auto) 3.0, Absolute Lymphs (auto) 1.02, Nucleated RBC % 0, Sodium 137, Potassium 3.4, Chloride 104, Carbon Dioxide 21.9, Anion Gap 11, BUN 13, C reatinine 1.28 H, Estim Creat Clear Calc 40.82 L, Est GFR (MDRD) Non-Af 55 L, BUN/Creatinine Ratio 10.5, Glucose 197 H, Calcium 6.0 L*, Total Bilirubin 0.30, AST 15, ALT 7, Alkaline Phosphatase 80, Total Protein 4.8 L, Albumin 2.7 L, G lobulin 2.1 L, Albumin/Globulin Ratio 1.3 01/17/25 11:55: POC Glucose 233 H 01/17/25 16:22: POC Glucose 325 H Radiography Diagnostic Testing: Radiology Impression Abdomen/Pelvis CT 01/16/25 16:40 IMPRESSION: 1. Underdistended bladder containing a Hernández catheter which limits its assessment. Severe diffuse bladder wall thickening and perivesicular fat stranding as well as a small amount of right pre vesicular fluid. Findings could relate to acute cystitis and/or chronic outlet obstruction. Underlying malignancy not excluded. Consider further assessment with direct visualization and/or CT urogram. 2. Moderate/severe bilateral hydroureteronephrosis likely related to #1. 3. Marked prostatomegaly. 4. Fecal retention. Reading Location: [facility] Physical Exam Narrative alert, oriented x3, no apparent distress and healthy appearing Constitutional Narrative: Patient appears her stated age General Appearance: cooperative, well kempt and well developed Orientation / Consciousness: awake, oriented to person, oriented to place and oriented to time HEENT normocephalic, head/scalp atraumatic and moist oral mucous membranes HEENT Narrative: Patient is hard of hearing Eyes PERRL, EOMs intact bilaterally and conjunctivae normal Neck supple, no JVD, thyroid normal and no carotid bruits General: trachea midline Resp normal respiratory effort, no retractions, no use of accessory muscles and clear to auscultation bilaterally Auscultation: Negative for rales, rhonchi or wheezes Cardio regular rate, regular rhythm, S1 normal heart sound, S2 normal heart sound, no murmurs, no rub and no gallops GI normal to inspection, nondistended, normoactive bowel sounds, soft to palpation, non-tender and non-distended Extremity no clubbing, cyanosis or edema Skin no rashes or lesions noted General Skin Exam: no breakdown Neuro oriented x3, CN's II-XII intact bilaterally, moves all extremities, no focal motor deficits and no sensory deficits noted Sensorium / Orientation: awake, alert, oriented to person, oriented to place and oriented to time Speech: speech normal Psych affect normal Assessment & Plan Assessment/Plan (1) Anemia: PLAN: Plan 1. Chronic anemia-appears to be iron deficiency-etiology unclear, patient CBC will be rechecked tomorrow, patient was given Venofer today #2 acute urinary retention with hematuria-CT done yesterday on the abdomen and pelvis showed a thickened bladder wall which could be the result of chronic bladder distention. I have elected to give the patient tranexamic acid to see if this will stop his bleeding. If not, patient may have to have bladder irrigation. #3 type 2 diabetes-patient's hemoglobin A1c was 10.9, continue fingerstick blood sugars with sliding scale insulin coverage #4 hypothyroidism-patient is on Synthroid #5 chronic moderate protein and caloric malnutrition related to inadequate oral intake and hyperglycemia, as evidenced by a 5% unintentional weight loss x 5 to 6 weeks, p.o. meeting less than 75% of estimated nutritional needs x 1 month and BMI of 23.3. Patient's diet was changed to 2000-calorie consistent carbohydrate, he will have 120 mL Glucerna shake with all meal trays, and extra 1 to 2 ounces of protein was ordered with each meal tray Total clinical time spent by myself addressing the patient's medical issues, reviewing all of his data, and collaborating the patient's care team: 35 minutes Charges/Coding Visit Charges Inpatient E&M: 68670 Subs Hosp L2
[2025-01-17 21:00] VITALS: BP 125/66; PULSE 69; RESP 16; TEMP 37.1; O2SAT 98
[2025-01-17] MEDS: Lisinopril 2.5 MG Tablet PO (21:07)
[2025-01-17 21:51] LABS: Bedside Glucose 315 mg/dL (74-106)
[2025-01-18 03:00] VITALS: BP 131/88; PULSE 84; RESP 16; TEMP 36.9; O2SAT 96
[2025-01-18] MEDS: Insulin Lispro 100 UNIT/ML INSULN.PEN SC ×4 (06:21→21:14)
[2025-01-18] MEDS: Levothyroxine 150 MCG Tablet PO (06:21)
[2025-01-18 06:28] LABS: Absolute Lymphocyte Count 1.21 X10^3/uL (0.83-4.51); Absolute Neutrophil Count 2.5 X10^3/uL (2.0-7.7); Basophil# 0.01 X10^3/uL; Basophil% 0.2 % (0-1); Eosinophil# 0.77 X10^3/uL; Eosinophils% 15.8 % (0-5); Hemoglobin 7.7 g/dL (13.0-16.5); Lymphocyte # 1.21 X10^3/ul (0.83-4.51); Lymphocyte % 24.8 % (19-41); Mean Corp Hgb Conc 30.8 g/dL (32-36); Mean Corpuscular Volume 74.6 fL (80-94); Mean Platelet Vol. 9.3 fl (6.2-12.0); Monocyte# 0.37 X10^3/uL; Monocyte% 7.6 % (0-10); NRBC Flagged by Analyzer 0 % (0-5); Neutrophil # 2.47 X10^3/uL (2.7-7.7); Neutrophil % 50.8 % (47-70); Platelet Count 232 K/mm3 (150-450); RBC Distribution Width CV 17.1 % (11.6-14.6); RBC Distribution Width SD 44.9 fl (35.1-43.9); Red Blood Count 3.35 M/mm3 (4.6-6.2); White Blood Count 4.9 K/mm3 (4.4-11.0)
[2025-01-18 06:50] LABS: Bedside Glucose 198 mg/dL (74-106)
[2025-01-18] MEDS: 0.9% Saline Lock 10 ML Syringe IV (08:46)
[2025-01-18] MEDS: TRANEXAMIC ACID 1,000 MG in 0.9% Normal Saline (100mL Bag) 100 ML 440 MG IV (08:46)
[2025-01-18 09:00] VITALS: BP 123/53; PULSE 87; RESP 16; TEMP 36.7; O2SAT 98
--- NOTE | 2025-01-18 09:12 | PCM.PN.HOSP ---
Reason for Visit Reason for Visit: Diagnoses Anemia, unspecified (01/17/25) Subjective Subjective Patient was seen and examined today, his hemoglobin today was 7.7, urine has a slight tinge of blood but for the most part the urine looks clear, I have decided to give the patient another dose of tranexamic acid Objective Data Objective Data Vital Signs: Vital Signs Temp Pulse Resp BP Pulse Ox O2 Del Method 98.5 F 84 16 131/88 H 96 Room Air 01/18/25 03:00 01/18/25 03:00 01/18/25 03:00 01/18/25 03:00 01/18/25 03:00 01/18/25 03:00 Oxygen Delivery Method Room Air Weight: 69.4 kg Body Mass Index (BMI) 23.2 Intake & Output: Intake and Output for Last 24 Hours 01/16/25 01/17/25 01/18/25 23:59 23:59 23:59 Intake Total 840 / 1540 2635.75 / 2635.75 Output Total 2900 / 3950 3400 / 3800 850 / 850 Balance -2060 / -2410 -764.25 / -1164.25 -850 / -850 Medical Nutrition Assessment Dietitian: Malnutrition Criteria Met Start: 01/16/25 13:49 Freq: Status: Active Protocol: Document 01/16/25 13:50 RMA (Rec: 01/16/25 13:50 RMA [id number]) Nutrition Malnutrition Evidence of Yes Malnutrition Exists Malnutrition ( Chronic moderate): Evidenced By Suboptimal Energy Intake (Moderate),Weight Loss ( Moderate) Clinical Problem Chronic Disease or Condition Related Malnutrition Etiology moderate protein-calorie malnutrition in the context of chronic disease and debility related to inadequate oral intake and hyperglycemia Signs/Symptoms as evidenced by ~5% unintentional weight loss x 5-6 weeks, PO meeting less than 75% estimated nutrition needs x 1 month and BMI 23.3 Status Active Problem Recommendation Dietitian Will change diet to 2000 calorie, consistent Recommendations/ carbohydrate. Changes Will add 120mL glucerna shake with all meal trays. Will add extra 1-2 oz protein Q meal tray. Lab / Micro Data 01/18/25 06:00 01/17/25 06:49 Labs: Laboratory Results - last 24 hr 01/17/25 11:55: POC Glucose 233 H 01/17/25 16:22: POC Glucose 325 H 01/17/25 21:02: POC Glucose 315 H 01/18/25 06:00: WBC 4.9, RBC 3.35 L, Hgb 7.7 L, Hct 25.0 L, MCV 74.6 L, MCH 23.0 L, MCHC 30.8 L, RDW Std Deviation 44.9 H, RDW Coeff of Tahir 17.1 H, Plt Count 232, MPV 9.3, Immature Gran % (Auto) 0.800, Neut % (Auto) 50.8, Lymph % (Auto) 24.8, [place] % (Auto) 7.6, Eos % (Auto) 15.8 H, Baso % (Auto) 0.2, Absolute Neuts (auto) 2.5, Absolute Lymphs (auto) 1.21, Nucleated RBC % 0 01/18/25 06:20: POC Glucose 198 H Physical Exam Narrative alert, oriented x3, no apparent distress and healthy appearing Constitutional Narrative: Patient appears her stated age General Appearance: cooperative, well kempt and well developed Orientation / Consciousness: awake, oriented to person, oriented to place and oriented to time HEENT normocephalic, head/scalp atraumatic and moist oral mucous membranes HEENT Narrative: Patient is hard of hearing Eyes PERRL, EOMs intact bilaterally and conjunctivae normal Neck supple, no JVD, thyroid normal and no carotid bruits General: trachea midline Resp normal respiratory effort, no retractions, no use of accessory muscles and clear to auscultation bilaterally Auscultation: Negative for rales, rhonchi or wheezes Cardio regular rate, regular rhythm, S1 normal heart sound, S2 normal heart sound, no murmurs, no rub and no gallops GI normal to inspection, nondistended, normoactive bowel sounds, soft to palpation, non-tender and non-distended Extremity no clubbing, cyanosis or edema Skin no rashes or lesions noted General Skin Exam: no breakdown Neuro oriented x3, CN's II-XII intact bilaterally, moves all extremities, no focal motor deficits and no sensory deficits noted Sensorium / Orientation: awake, alert, oriented to person, oriented to place and oriented to time Speech: speech normal Psych affect normal Assessment & Plan Assessment/Plan (1) Anemia: PLAN: Plan 1. Chronic anemia-appears to be iron deficiency-etiology unclear, patient CBC will be rechecked tomorrow, patient will be given Venofer today #2 acute urinary retention with hematuria-CT done on the abdomen and pelvis showed a thickened bladder wall which could be the result of chronic bladder distention. Patient will be given another dose of tranexamic acid today #3 type 2 diabetes-patient's hemoglobin A1c was 10.9, continue fingerstick blood sugars with sliding scale insulin coverage #4 hypothyroidism-patient is on Synthroid #5 chronic moderate protein and caloric malnutrition related to inadequate oral intake and hyperglycemia, as evidenced by a 5% unintentional weight loss x 5 to 6 weeks, p.o. meeting less than 75% of estimated nutritional needs x 1 month and BMI of 23.3. Patient's diet was changed to 2000-calorie consistent carbohydrate, he will have 120 mL Glucerna shake with all meal trays, and extra 1 to 2 ounces of protein was ordered with each meal tray Total clinical time spent by myself addressing the patient's medical issues, reviewing all of his data, and collaborating the patient's care team: 35 minutes Charges/Coding Visit Charges Inpatient E&M: 80905 Subs Hosp L2
--- NOTE | 2025-01-18 10:40 | CASEMGMT ---
KARO BETANCOURT Face to Face with patient for initial transition planning/care coordination assessment. KARO BETANCOURT introduced self and role at [facility]. Patient lying in bed, alert and oriented. Patient willing to participate in assessment and is able to answer all questions appropriately. Care providers, pharmacy, and demographics verified. Strata: 1 PCP: Mohini Specialists: none Preferred Pharmacy: [facility] Insurance: [employer] Prescription Benefit: yes Living Will/HPOA: yes, Julieta Nunez or daughter Gwen Jordan LNOK: , daughter Living Arrangements: Patient lives with in a single story home. Patient is independent at home. Transportation: self, daughter DME/HHC: Patient has shower chair, raised toilet, grab bars, walker, and glucometer at home. No previous HHC or SNF Patient wishes to discharge home, denies need for home health at this time. RN SERAFIN discussed possible arnold at discharge, patient states that he will not go home with arnold, hospitalist updated. Will have nurse complete arnold teaching with patient prior to discharge. Patient states he has no further needs or concerns at this time. CM to follow for discharge planning needs that may arise. Disposition Plan: Patient to discharge home with family support and follow-up plans in place. Jeannette SENIOR, RN, CM
[2025-01-18] MEDS: Ciprofloxacin 500 MG Tablet PO ×2 (11:07→21:13)
[2025-01-18] MEDS: Heparin Injection (Vial) 5,000 UNIT/ML VIAL 5000 UNIT SC ×2 (11:07→21:14)
[2025-01-18] MEDS: Glucerna Shake 120 ML LIQUID PO ×4 (11:07→21:13)
[2025-01-18 12:02] LABS: ALB/GLOB Ratio 1.1 RATIO (0.9-2.4); AST(SGOT) 13 U/L (<=37); Alanine Aminotransfer ALT/SGPT < 5 U/L (<=46); Albumin, Serum 2.6 g/dL (3.4-4.8); Alkaline Phosphatase 76 U/L (40-129); Anion Gap 10 (5-15); BUN 16 mg/dL (4-19); BUN/Creat Ratio 11.4 RATIO (10-20); Calcium,Total 6.7 mg/dL (7.6-11.0); Carbon Dioxide 21.9 mmol/L (21.0-32.0); Chloride 104 mmol/L (98-108); Creatinine, Serum 1.41 mg/dL (0.70-1.20); EST Glomerular Filtration Rate 49 (>60); Estimated Creatinine Clearance 37.06 ml/min (50-250); Globulin 2.3 g/dL (2.2-4.2); Glucose 200 mg/dL (70-99); Potassium 3.6 mmol/L (3.3-5.1); Protein, Total 4.9 g/dL (5.9-8.4); Sodium Level 136 mmol/L (133-145); Total Bilirubin 0.31 mg/dL (0.00-1.30)
[2025-01-18 12:22] LABS: Bedside Glucose 280 mg/dL (74-106)
[2025-01-18 14:41] VITALS: BP 125/67; PULSE 76; RESP 16; TEMP 36.5; O2SAT 99
[2025-01-18] MEDS: Tamsulosin HCl 0.4 MG Capsule 0.8 MG PO (16:52)
[2025-01-18 17:11] LABS: Bedside Glucose 221 mg/dL (74-106)
[2025-01-18 21:03] VITALS: BP 107/55; PULSE 88; RESP 16; TEMP 36.9; O2SAT 97
[2025-01-18] MEDS: Lisinopril 2.5 MG Tablet PO (21:14)
[2025-01-18 23:01] LABS: Bedside Glucose 290 mg/dL (74-106)
[2025-01-19 05:25] VITALS: BP 115/53; PULSE 89; RESP 16; TEMP 36.9; O2SAT 97
[2025-01-19] MEDS: Levothyroxine 150 MCG Tablet PO (05:29)
[2025-01-19] MEDS: Insulin Lispro 100 UNIT/ML INSULN.PEN SC ×3 (06:37→16:31)
[2025-01-19 07:17] LABS: Bedside Glucose 212 mg/dL (74-106)
[2025-01-19 08:35] LABS: Hematocrit 26.5 % (40-54); Hemoglobin 8.2 g/dL (13.0-16.5)
[2025-01-19 08:57] LABS: Anion Gap 11 (5-15); BUN 16 mg/dL (4-19); BUN/Creat Ratio 11.2 RATIO (10-20); Calcium,Total 7.2 mg/dL (7.6-11.0); Carbon Dioxide 22.8 mmol/L (21.0-32.0); Chloride 104 mmol/L (98-108); Creatinine, Serum 1.45 mg/dL (0.70-1.20); EST Glomerular Filtration Rate 47 (>60); Estimated Creatinine Clearance 36.03 ml/min (50-250); Glucose 178 mg/dL (70-99); Potassium 3.5 mmol/L (3.3-5.1); Sodium Level 138 mmol/L (133-145)
[2025-01-19] MEDS: Heparin Injection (Vial) 5,000 UNIT/ML VIAL 5000 UNIT SC (08:59)
[2025-01-19] MEDS: Ciprofloxacin 500 MG Tablet PO ×2 (08:59→17:03)
[2025-01-19] MEDS: Glucerna Shake 120 ML LIQUID PO ×3 (09:00→16:32)
[2025-01-19 09:05] VITALS: BP 107/65; PULSE 92; RESP 16; TEMP 36.8; O2SAT 97
[2025-01-19 12:04] LABS: Bedside Glucose 285 mg/dL (74-106)
--- NOTE | 2025-01-19 14:15 | DCINST_ITS ---
Discharge Instructions Diet Discharge Diet: No restrictions DC O2, CPAP, BIPAP needs Home O2 Discharge instructions: No Dressing / Incision Discharge Activity: Return to Normal Activity Weight Bearing Status: Full weight bearing Follow Up Care Test Results: Test results from this visit will be discussed in further detail at your follow- up appointment, if applicable. Discharge Plan Admission Admit Date/Time: 01/17/25 14:59 Primary Reason for Your Visit: Iron deficiency anemia from suspected GI blood loss,acute urinary retention Attending Provider: Krunal Lizarraga Primary Care Provider: Lam Rajan Consulting Providers: Krunal Lizarraga Instructions Patient Instructions: Urinary Catheter Bag Care, Indwelling Urinary Catheter Dc, Leg Bag Care Dc, Hernández Catheter Male Ch, ED Hernández Catheter, Care Additional Instructions / Restrictions: I want you to stay off aspirin 81 mg daily and less your family doctor feels there is a need to continue it Discharge Orders/Prescriptions Prescriptions: New ciprofloxacin HCl 500 mg Tablet 500 mg PO BID Qty: 11 0RF tamsulosin 0.4 mg Capsule 0.8 mg PO DAILY@1730 Qty: 60 0RF ferrous sulfate 325 mg (65 mg iron) tablet 325 mg PO BID Qty: 60 0RF Continued lisinopril 2.5 mg tablet 2.5 mg PO QHS metformin 500 mg tablet 500 mg PO BID levothyroxine 150 mcg tablet 150 mcg PO QDAY Discontinued aspirin [Adult Aspirin Regimen] 81 mg tablet,delayed release (DR/EC) 81 mg PO QDAY Referrals / Follow Up: Lam Rajan MD [Primary Care Provider] - See Referral Note (On 01/22/2025 or 01/23/2025, have him check your CBC also. At this visit he will probably discontinue your catheter) Disposition Disposition (needs filled in before D/C Order can be placed): Home, Self Care
--- NOTE | 2025-01-19 14:22 | PCM.DC.SUM ---
Providers Date of Admission: 01/17/25 Date of Discharge: 01/19/25 Primary Care Physician: Dr. Lam Rajan MD Consultations 01/15/25 09:09 Consult: Hospitalist Routine Consulting Provider: Krunal Lizarraga Reason for Consult: anemia; hgb 5.9 EMERGENT Consult: Yes Notified: Yes Date Notified: 01/15/25 Time Notified: 09:09 Method of Notification: Answering Service Method of Consult:: In-Person Comments:: paged via head turning machine operator Reason For Visit: ANEMIA Diagnosis Discharge Diagnosis (1) Anemia: Status: Acute Code(s): D64.9 - Anemia, unspecified Plan 1. Chronic anemia-appears to be iron deficiency-etiology unclear, patient CBC will be rechecked tomorrow, patient will be given Venofer today #2 acute urinary retention with hematuria-CT done on the abdomen and pelvis showed a thickened bladder wall which could be the result of chronic bladder distention. Patient will be given another dose of tranexamic acid today #3 type 2 diabetes-patient's hemoglobin A1c was 10.9, continue fingerstick blood sugars with sliding scale insulin coverage #4 hypothyroidism-patient is on Synthroid #5 chronic moderate protein and caloric malnutrition related to inadequate oral intake and hyperglycemia, as evidenced by a 5% unintentional weight loss x 5 to 6 weeks, p.o. meeting less than 75% of estimated nutritional needs x 1 month and BMI of 23.3. Patient's diet was changed to 2000-calorie consistent carbohydrate, he will have 120 mL Glucerna shake with all meal trays, and extra 1 to 2 ounces of protein was ordered with each meal tray Total clinical time spent by myself addressing the patient's medical issues, reviewing all of his data, and collaborating the patient's care team: 35 minutes Medications at Discharge Home Medications levothyroxine 150 mcg tablet 150 mcg PO QDAY 12/05/24 lisinopril 2.5 mg tablet 2.5 mg PO QHS 12/05/24 metformin 500 mg tablet 500 mg PO BID 12/05/24 ciprofloxacin HCl 500 mg tablet 500 mg PO BID #11 tabs 01/19/25 ferrous sulfate 325 mg (65 mg iron) tablet 325 mg PO BID #60 tabs 01/19/25 tamsulosin 0.4 mg capsule 0.8 mg (2 x 0.4 mg) PO DAILY@1730 #60 caps 01/19/25 Hospital Course Operations None Procedures None Summary of Care Provided Minutes Spent on Discharge: 31 Hospital Course: This 84-year-old white male was seen by Dr. Huynh before his scheduled upper and lower endoscopy due to chronic anemia, labs were performed and noted that his hemoglobin was 5.9, blood was ordered for the patient and he underwent upper and lower endoscopy which did not reveal a source of bleeding. Hospitalist service was contacted for admission to the hospital for further blood transfusion and medical care. Patient was transfused a total of 2 units of packed red blood cells and his hemoglobin remained stable, unfortunately the patient went into urinary retention-he had been having problems urinating as an outpatient for several months with frequent urination of only small amounts of urine. Hernández catheter was inserted and a large amount of urine was drained, it then turned to bloody and the catheter remained for several days showing hematuria which was not severe. I finally elected to give the patient tranexamic acid which appeared to stop the bleeding. CT of the abdomen and pelvis without contrast showed a thickened bladder-this will need follow-up as an outpatient but most likely was caused by BPH and chronic bladder distention. Patient did not require any more units of packed red blood cells, labs obtained showed the patient was very iron deficient, he was given several infusions of Venofer. Patient was placed on antibiotics due to his hematuria and his risk for UTI. I did talk with his family practice physician about his medical care a couple of days before discharge, I instructed the patient to follow-up with his PCP for removal of his Hernández catheter. On 01/19/2025, patient was seen and examined: On examination he appeared in good health and spirits. Vital signs as documented. Skin warm and dry and without overt rashes. Neck without JVD, neck was supple, trachea midline, thyroid was normal. Lungs clear bilaterally, normal air movement was noted. Heart exam notable for regular rhythm, normal sounds and absence of murmurs, rubs or gallops. Abdomen unremarkable and without evidence of organomegaly, masses, or abdominal aortic enlargement. Bowel sounds are present, abdomen is not distended. Extremities nonedematous, no cyanosis was noted, no clubbing was noted. Neuro: Cranial nerves II through XII are grossly intact, no focal motor deficits were noted, sensation to light touch and pinprick intact, motor exam 5/5 throughout. Psych: Patient is alert and oriented x3, he does not appear anxious or depressed, he does not appear agitated. Patient was discharged home in stable condition on 01/19/2025, he was instructed how to use a leg bag and he was discharged with the Hernández catheter in place. Patient will need further workup for his anemia such as a capsule endoscopy, I contacted gastroenterology (Dr. Tejada) concerning the patient and sent him the contact information of the patient's name to schedule appointment for capsule endoscopy. Medical Records Data Medical Nutrition Assessment Dietitian: Malnutrition Criteria Met Start: 01/16/25 13:49 Freq: Status: Active Protocol: Document 01/16/25 13:50 RMA (Rec: 01/16/25 13:50 RMA [id number]) Nutrition Malnutrition Evidence of Yes Malnutrition Exists Malnutrition ( Chronic moderate): Evidenced By Suboptimal Energy Intake (Moderate),Weight Loss ( Moderate) Clinical Problem Chronic Disease or Condition Related Malnutrition Etiology moderate protein-calorie malnutrition in the context of chronic disease and debility related to inadequate oral intake and hyperglycemia Signs/Symptoms as evidenced by ~5% unintentional weight loss x 5-6 weeks, PO meeting less than 75% estimated nutrition needs x 1 month and BMI 23.3 Status Active Problem Recommendation Dietitian Will change diet to 2000 calorie, consistent Recommendations/ carbohydrate. Changes Will add 120mL glucerna shake with all meal trays. Will add extra 1-2 oz protein Q meal tray. Weight / BMI Weight Weight: 69.4 kg Body Mass Index (BMI) 23.2 ABG / Lab / Microbiology Data 01/19/25 08:25 01/19/25 08:25 Laboratory: Laboratory Results - last 24 hr 01/18/25 16:51: POC Glucose 221 H 01/18/25 21:11: POC Glucose 290 H 01/19/25 06:36: POC Glucose 212 H 01/19/25 08:25: Hgb 8.2 L, Hct 26.5 L, Sodium 138, Potassium 3.5, Chloride 104, Carbon Dioxide 22.8, Anion Gap 11, BUN 16, Creatinine 1.45 H, Estim Creat Clear Calc 36.03 L, Est GFR (MDRD) Non-Af 47 L, BUN/Creatinine Ratio 11.2, Glucose 178 H, Calcium 7.2 L 01/19/25 11:32: POC Glucose 285 H D/C Instructions Discharge Diet: No restrictions Weight Bearing Status: Full weight bearing DC O2, CPAP, BIPAP Needs Home O2 Discharge instructions: No Meaningful Use Info Meaningful Use Meaningful Use Diagnoses (Choose all that apply): None applicable Ischemic Stroke Statin Dosing Therapy Reference: STATIN DOSE THERAPY REFERENCE: * Patients > 75 years receive moderate or high dose statin therapy. * Patients 75 years or YOUNGER should receive HIGH intensity statin dose unless contraindicated. You will be required to document reason for non-treatment if statin daily dose does not meet guidelines. HIGH DOSE STATIN THERAPY DAILY Atorvastatin > than or = to 40 mg Rosuvastatin > than or = to 20 mg Amlodipine + Atorvastatin > than or = to 2.5/40 mg Ezetimibe + Simvastatin 10/80 mg Simvastatin 80mg Discharge Plan Admission Admit Date/Time: 01/17/25 14:59 Primary Reason for Your Visit: Iron deficiency anemia from suspected GI blood loss,acute urinary retention Attending Provider: Krunal Lizarraga Primary Care Provider: Lam Rajan Consulting Providers: Krunal Lizarraga Instructions Patient Instructions: Urinary Catheter Bag Care, Indwelling Urinary Catheter Dc, Leg Bag Care Dc, Hernández Catheter Male , ED Hernández Catheter, Care Additional Instructions / Restrictions: I want you to stay off aspirin 81 mg daily and less your family doctor feels there is a need to continue it Discharge Orders/Prescriptions Prescriptions: New ciprofloxacin HCl 500 mg Tablet 500 mg PO BID Qty: 11 0RF tamsulosin 0.4 mg Capsule 0.8 mg PO DAILY@1730 Qty: 60 0RF ferrous sulfate 325 mg (65 mg iron) tablet 325 mg PO BID Qty: 60 0RF Continued lisinopril 2.5 mg tablet 2.5 mg PO QHS metformin 500 mg tablet 500 mg PO BID levothyroxine 150 mcg tablet 150 mcg PO QDAY Discontinued aspirin [Adult Aspirin Regimen] 81 mg tablet,delayed release (DR/EC) 81 mg PO QDAY Referrals / Follow Up: Lam Rajan MD [Primary Care Provider] - See Referral Note (On 01/22/2025 or 01/23/2025, have him check your CBC also. At this visit he will probably discontinue your catheter) Disposition Disposition (needs filled in before D/C Order can be placed): Home, Self Care Charges/Coding Visit Charges Inpatient E&M: 57413 Disch Hosp >30min
[2025-01-19 14:30] VITALS: BP 112/65; PULSE 88; RESP 16; TEMP 36.8; O2SAT 97
[2025-01-19] MEDS: Sodium Ferric Gluconat/Sucrose 250 MG in 0.9% Normal Saline (250mL Bag) 250 ML 135 MG IV (14:35)
[2025-01-19] MEDS: Tamsulosin HCl 0.4 MG Capsule 0.8 MG PO (16:32)
[2025-01-19 17:10] LABS: Bedside Glucose 359 mg/dL (74-106)
== END 2025-01-19 17:20 | disposition home or self-care (01) | DRG 812 ==
LOC: MS3 01-16 07:56 → EN 01-16 08:52 → MS3 01-16 08:52
PROVIDERS: Surgery; Admitting Provider Internal Medicine; PCP Family Medicine; Referring Provider Family Medicine; Visit Provider Internal Medicine
PROC: 0DJD8ZZ Inspection of Lower Intestinal Tract, Via Natural or Artificial Opening Endoscopic (ICD-10-PCS; CPT 45378; principal; 2025-01-15 09:40)
DX: D50.0 Iron deficiency anemia secondary to blood loss (chronic) (principal); E44.0 Moderate protein-calorie malnutrition; E11.65 Type 2 diabetes mellitus with hyperglycemia; I10 Essential (primary) hypertension; G25.81 Restless legs syndrome; K31.7 Polyp of stomach and duodenum; K57.30 Diverticulosis of large intestine without perforation or abscess without bleeding; Z79.890 Hormone replacement therapy; R63.4 Abnormal weight loss; Z79.82 Long term (current) use of aspirin; R33.9 Retention of urine, unspecified; R53.1 Weakness; Z79.84 Long term (current) use of oral hypoglycemic drugs; Z79.899 Other long term (current) drug therapy; Z96.21 Cochlear implant status; Z90.49 Acquired absence of other specified parts of digestive tract; R35.0 Frequency of micturition; Z68.23 Body mass index [BMI] 23.0-23.9, adult; R31.9 Hematuria, unspecified; N32.89 Other specified disorders of bladder; N40.1 Benign prostatic hyperplasia with lower urinary tract symptoms; R53.81 Other malaise
CPT/HCPCS: 36415; 51702; 74176; 80048; 80053; 81001; 82728; 82962; 83036; 83540; 83550; 85014; 85018; 85025; 85045; 86644; 86850; 86900; 86901; 88305; 97802; P9016; A4216; J2405; J2916

== ENCOUNTER → 2025-01-27 | Outpatient (CLI) | payer MEDICARE, SELFPAY ==
[2025-01-27 10:16] LABS: Absolute Lymphocyte Count 1.38 X10^3/uL (0.83-4.51); Absolute Neutrophil Count 3.6 X10^3/uL (2.0-7.7); Basophil# 0.04 X10^3/uL; Basophil% 0.7 % (0-1); Eosinophil# 0.55 X10^3/uL; Hematocrit 38.2 % (40-54); Hemoglobin 12.3 g/dL (13.0-16.5); Lymphocyte # 1.38 X10^3/ul (0.83-4.51); Lymphocyte % 22.5 % (19-41); Mean Corp Hgb Conc 32.2 g/dL (32-36); Mean Corpuscular Hgb 26.5 pg (27.0-32.0); Mean Corpuscular Volume 82.2 fL (80-94); Mean Platelet Vol. 9.2 fl (6.2-12.0); Monocyte% 8.2 % (0-10); NRBC Flagged by Analyzer 0 % (0-5); Neutrophil # 3.58 X10^3/uL (2.7-7.7); Neutrophil % 58.5 % (47-70); POSITIVE MORPHOLOGY YES; Platelet Count 455 K/mm3 (150-450); RBC Distribution Width CV 20.4 % (11.6-14.6); RBC Distribution Width SD 58.4 fl (35.1-43.9); Red Blood Count 4.65 M/mm3 (4.6-6.2); White Blood Count 6.1 K/mm3 (4.4-11.0)
[2025-01-27 10:20] LABS: Differential Indicated SCAN CRITERIA MET
[2025-01-27 11:53] LABS: Differential Comment SCANNED
== END | disposition home or self-care (01) ==
LOC: LAB 09:37
PROVIDERS: PCP Family Medicine
DX: D64.9 Anemia, unspecified (principal)
CPT/HCPCS: 36415; 85025